=== PATIENT | male | born 1985 | race African-American/Black ===

== ENCOUNTER 2017-12-12 19:29 | Emergency (ER) | payer SELFPAY ==
[~2017-12-12] VITALS: Ht 190.5 cm; Wt 95.3 kg
[2017-12-12 19:38] VITALS: BP 134/88
[2017-12-12] MEDS ORDERED: ADVAIR 100-501 EACH INH (19:44)
[2017-12-12] MEDS ORDERED: VENTOLIN HFA18 GM INH (19:44)
[2017-12-12] MEDS ORDERED: PREDNISONE20 MG ORAL (19:44)
[2017-12-12] MEDS ORDERED: Albuterol ud Inhalation HHN ONE (19:45)
--- NOTE | 2017-12-12 19:50 | Emergency Room Report ---
History of Present Illness General Chief Complaint: Asthma Source: Patient Present Illness HPI 32-year-old male with known asthma presents with shortness of breath for one to 2 days no Recent URI symptoms fever or chills or cough Ran out of home inhaler and Advair States infrequent asthma attacks No recent intubation or hospitalization for asthma Allergies: Coded Allergies: No Known Allergies (Unverified , 12/12/17) Patient History Past Medical History: asthma Past Surgical History: none Pertinent Family History: none Social History: Denies: smoking, alcohol use, drug use Immunizations: UTD Reviewed Nursing Documentation: PMH: Agreed; PSxH: Agreed Nursing Documentation-PM Past Medical History: No History, Except For Hx Asthma: Yes Review of Systems All Other Systems: negative except mentioned in HPI Physical Exam Vital Signs Date Time Temp Pulse Resp B/P (MAP) Pulse Ox O2 Delivery O2 Flow Rate FiO2 12/12/17 19:31 98.0 99 16 130/89 99 Room Air 98.1 12/12/17 19:38 100 Sp02 EP Interpretation: reviewed, normal General Appearance: normal inspection, well appearing, no apparent distress, alert, GCS 15, non-toxic Head: normocephalic, atraumatic Eyes: bilateral eye PERRL, bilateral eye EOMI ENT: normal ENT inspection, hearing grossly normal, normal pharynx, no angioedema, normal voice, TMs + canals normal, uvula midline, moist mucus membranes Neck: normal inspection, full range of motion, supple, thyroid normal, no meningismus, no bony tend Respiratory: normal inspection, lungs clear, normal breath sounds, no rhonchi, no respiratory distress, no retraction, no accessory muscle use, speaking full sentences, wheezing Cardiovascular #1: regular rate, rhythm, no edema, no JVD, normal capillary refill Gastrointestinal: normal inspection, normal bowel sounds, non tender, soft, no mass, no peritonitis, non-distended, no guarding, no hernia, no pulsatile mass Genitourinary: no CVA tenderness Musculoskeletal: normal inspection, back normal, normal range of motion, no calf tenderness, pelvis stable, Giuseppe's Sign negative Neurologic: normal inspection, alert, oriented x3, responsive, cyber security specialist III-XII nml as tested, motor strength/tone normal, cerebellar normal, normal gait, speech normal Psychiatric: normal inspection, judgement/insight normal, mood/affect normal, no suicidal/homicidal ideation, no delusions Skin: normal inspection, normal color, no rash Lymphatic: normal inspection, no adenopathy Medical Decision Making Diagnostic Impression: Primary Impression: Asthma Qualified Codes: J45.21 - Mild intermittent asthma with (acute) exacerbation ER Course Vital signs stable afebrile Patient is wheezing however not tachypnea, speaking in full sentences, no accessory muscle use Proved with nebs, prednisone Refills provided for Advair, albuterol prednisone for 5 days PMD followup DC Last Vital Signs Date Time Temp Pulse Resp B/P (MAP) Pulse Ox O2 Delivery O2 Flow Rate FiO2 12/12/17 19:38 98.1 65 8 134/88 100 Room Air 98.1 12/12/17 19:38 100 Status: improved Disposition: HOME, SELF-CARE Condition: Improved Scripts Prednisone* (PREDNISONE*) 20 Mg Tablet 40 MG ORAL DAILY for 5 Days, #10 TAB Prov: SONDRA PRESTON M.D. 12/12/17 Albuterol Sulfate (VENTOLIN HFA) 18 Gm Hfa.aer.ad 1 PUFF INH EVERY 6 HOURS for cough, SOB, #18 GM 0 Refills Prov: SONDRA PRESTON M.D. 12/12/17 Fluticasone/Salmeterol (Advair 100-50 Diskus) 1 Each Blst.w.dev 1 PUFF INH BID for 30 Days, #1 EA 1 Refill Prov: SONDRA PRESTON M.D. 12/12/17 Patient Instructions: Asthma, Adult SONDRA PRESTON M.D. Dec 12, 2017 19:50
[2017-12-12] MEDS ORDERED: Advair 100/50 Inhaler - 14 dose INH SCH (21:00)
[2017-12-12 21:26] VITALS: BP 134/82
== END 2017-12-12 21:30 | disposition home or self-care (01) ==
LOC: EMR 19:53
DX: J45.21 Mild intermittent asthma with (acute) exacerbation (principal)
CPT/HCPCS: 94640; 99284; J7512